=== PATIENT | female | born 1960 | race American Indian/Alaskan Native ===

== ENCOUNTER 2018-10-21 09:30 | Outpatient (CLI) | payer MEDICARE ==
--- NOTE | 2018-10-22 09:55 | Magnetic Resonance Report ---
BILATERAL BREAST MRI WITHOUT AND WITH CONTRAST: 10/21/18 09:30:00 CLINICAL: Breast cancer survivor status post left total mastectomy and sentinel lymph node biopsy for stage III left breast cancer in August 2000. Tumor receptors were ER/CT/HER-2 positive and she received five years of Femara and Arimidex. Negative BRCA testing in 2014. She underwent a left breast reconstruction with a TRAM flap. 2 prior right benign biopsies in 2006 and 2013. She has had a right axillary lump since May 2017 which has remained clinically stable. COMPARISON:10/08/18 right mammogram. TECHNIQUE: Axial 1.0-mm T1 without, axial high resolution 2.0-mm T2 and axial 1.0-mm dynamic Vibrant high-resolution postcontrast T1 fat saturation sequences on a 1.5 [place] magnet. The examination was performed with an 8 channel dedicated [place] breast coil. Post processing with CAD and subtraction was performed on an [employer] workstation. 16.0 cc of Multihance was injected without incident for the contrast portion of the exam. Consent was obtained prior to the administration of the contrast. FINDINGS: Right: Minimal background parenchymal enhancement. No mass or suspicious enhancement. Numerous right axillary lymph nodes are small and have benign morphology with central fat. A 7 mm axillary tail lymph node with benign features. Left: Minimal background enhancement of the TRAM flap reconstruction. Benign right intraparenchymal lymph node in the axillary tail and multiple benign right axillary lymph nodes which probably correlates with a clinically palpable axillary lump. No mass or suspicious enhancement. No suspicious lymph nodes. IMPRESSION: Negative study. Recommend routine mammographic screening. BI-RADS 1 - - Negative
== END 2018-10-21 09:31 | disposition home or self-care (01) ==
LOC: SPVIMAG 09:30
PROVIDERS: ATTEND Surgery
DX: R92.8 Other abnormal and inconclusive findings on diagnostic imaging of breast (principal); Z85.3 Personal history of malignant neoplasm of breast; Z90.12 Acquired absence of left breast and nipple
CPT/HCPCS: A9577; C8908; 77059

== ENCOUNTER 2020-01-07 13:38 | Outpatient (CLI) | payer MEDICARE ==
--- NOTE | 2020-01-07 17:46 | Ultrasound Report ---
RIGHT DIGITAL DIAGNOSTIC MAMMOGRAM WITH CAD 01/07/2020 RIGHT COMPLETE BREAST ULTRASOUND INDICATION: The patient reports generalized right breast pain. She has a personal history of left sergey ast cancer treated with mastectomy. TECHNIQUE: Digital right mammographic imaging was performed. Complete ultrasound of all four (4) frida drants was performed. This examination was interpreted with the benefit of Computer-Aided Detection ( CAD) analysis. COMPARISON: 10/08/2018, 06/23/2017 FINDINGS: Breast Density: The breasts are extremely dense, which lowers the sensitivity of mammography. MAMMOGRAPHIC FINDINGS: There is no evidence of dominant mass, suspicious calcifications or architectu ral distortion in either breast. There is no focal mammographic abnormality to account for the patien t's generalized right breast pain. ULTRASOUND FINDINGS: Complete sonographic evaluation of all 4 quadrants and retroareolar region was p erformed. Dense fibroglandular tissue is noted, as demonstrated mammographically. There is no focal abnormality to account for the patient's breast pain. There is no evidence of suspicious solid mass or shadowing. IMPRESSION: Follow up recommendation: Routine yearly BI-RADS Category 1: Negative. Clinical correlation is recommended for the patient's right breast bashir n. A "normal" or negative report should not discourage follow up or biopsy of a clinically significant f inding. A written summary of these findings will be mailed to the patient. The patient will be entered into a mammography reporting system which will generate a reminder letter for the patient's next appointmen t at the appropriate interval. According to the [employer], yearly mammograms are recommended starting at age 40 and continuing as long as a woman is in good health. Breast MRI is recommended for women with an luna roximately 20-25% or greater lifetime risk of breast cancer, including women with a strong family his tory of breast or ovarian cancer and women who have been treated for Hodgkin's disease. Signer Name: Liyah Rodriguez MD Signed: 01/07/2020 5:42 PM Workstation Name: [facility] [facility]
== END 2020-01-07 13:39 | disposition home or self-care (01) ==
LOC: MAMMO 13:38
PROVIDERS: ATTEND Obstetrics & Gynecology
DX: N64.4 Mastodynia (principal)